=== PATIENT | male | born 1975 ===

== ENCOUNTER 2024-11-08 15:28 | Outpatient (CLI) | payer BC | END 2024-11-08 15:29 | disposition home or self-care (01) | LOC: CSHULT 15:28 | PROVIDERS: ATTEND Nurse Practitioner Family | DX: R39.89 Other symptoms and signs involving the genitourinary system (principal); R31.29 Other microscopic hematuria; N43.3 Hydrocele, unspecified; N50.3 Cyst of epididymis | CPT/HCPCS: 76870; 93976 ==